=== PATIENT | female | born 1990 | race Two or more races ===

== ENCOUNTER 2020-11-22 17:25 | Emergency (ER) | payer OTHER, SELFPAY ==
[2020-11-22 17:57] VITALS: BP 143/91; PULSE 71; RESP 16; TEMP 36.6; O2SAT 100; BMI 19.8
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
[2020-11-22 18:28] LABS: Glucose Urine UA NEG (NEG); Leukocyte Esterase Urine NEG (NEG); Nitrite Urine NEG (NEG); Specific Gravity - Urine <= 1.005 (1.005-1.025); Urine Blood NEG (NEG); Urine Ketones NEG (NEG); Urine Protein NEG (NEG-TRACE)
[2020-11-22 18:29] LABS: Appearance Urine CLEAR; Color Urine STRAW
[2020-11-22 18:30] LABS: Urine Pregnancy NEGATIVE (NEGATIVE)
[2020-11-22 18:31] LABS: UPreg QC Valid YES
[2020-11-22] MEDS: Azithromycin 500 MG TABLET 1000 MG PO (19:49)
[2020-11-22] MEDS: cefTRIAXone sodium 250 MG VIAL IM (19:50)
--- NOTE | 2020-11-22 20:03 | PC.NURSE ---
LODOCAINE 1% 20ML NOT AVAILABLE. LIDOCAINE 1% 5ML USED.
[2020-11-24 17:32] LABS: C. trachomatis RNA TMA NOT DETECTED (NOT DETECTED); N. gonorrhoeae RNA TMA NOT DETECTED (NOT DETECTED)
== END 2020-11-22 20:02 | disposition home or self-care (01) ==
PROVIDERS: Emergency Provider Emergency Medicine
DX: Z20.2 Contact with and (suspected) exposure to infections with a predominantly sexual mode of transmission (principal)
CPT/HCPCS: 36415; 81003; 81025; 87491; 87591; 96372; 99283; 99284; J0696

== ENCOUNTER 2021-03-10 19:36 | Emergency (ER) | payer OTHER, SELFPAY ==
[2021-03-10 20:16] VITALS: BP 198/115; PULSE 69; RESP 22; TEMP 36.7; O2SAT 100; BMI 19.8
[2021-03-10] MEDS: Metoclopramide HCl 10 MG/2 ML VIAL IVPUSH (20:59)
[2021-03-10] MEDS: diphenhydrAMINE HCL 50 MG/ML VIAL 25 MG IVPUSH (20:59)
[2021-03-10] MEDS: LORazepam 2 MG/ML VIAL 1 MG IVPUSH (20:59)
[2021-03-10] MEDS: Ketorolac Tromethamine 30 MG/ML VIAL IVPUSH (20:59)
--- NOTE | 2021-03-10 21:01 | ED.HA ---
HPI - Headache General Chief Complaint: Headache Stated Complaint: flu like Time Seen by Provider: 03/10/21 20:20 Source: patient Mode of arrival: ambulatory Limitations: no limitations History of Present Illness HPI Narrative: 30 y/o female with history of migraine headaches, poorly controlled presents to the ER with worsening migraine since yesterday. She is nauseated and light sensitive. She is anxious and hyperventilating on arrival. Her hands are contracted. She reports her headache is severe and her whole body feels weird. She denies neck pain, fever, chills, or injury. She only takes OTC headache medication and often gets severe headaches. MD elicited complaint: migraine Pertinent past history: migraines Onset (ago): day(s) (1) Onset description: gradually Location: generalized Severity: severe Quality & Timing: aching and throbbing Exacerbating factors: light and noise Relieving factors: rest and ice packs Associated symptoms: nausea, diaphoresis and lightheadedness Treatments prior to arrival: none Related Data Previous Rx's Medication Instructions Recorded ttagwsxfrc-rfwtkwclryofv-jepf 1 cap PO Q6H PRN #10 cap 03/10/21 [Fioricet] Allergies Allergy/AdvReac Type Severity Reaction Status Date / Time nitrofurantoin Allergy Unknown RASH Verified 11/22/20 19:26 [From MACROBID] amoxicillin Allergy Unknown Verified 03/10/21 20:18 Review of Systems Review of Systems: Constitutional: No Fever, No Chills Eyes: +Eye Pain, No Swelling, No Redness Cardiovascular: No Chest Pain, No SOB, No Orthopnea, No Edema Respiratory: No Cough, No Sputum, No Wheezing, No dyspnea Gastrointestinal: + Nausea, No Vomiting, No Diarrhea, No abdominal Pain Genitourinary: No Dysuria, No Urinary Frequency, No Hematuria Musculoskeletal: No joint pain, No Myalgias Skin: No Skin Lesions, No rash Neuro: No Weakness, No Numbness, No Dizziness, + Headache Psych: + Anxiety/Panic, No Depression Heme/Lymph: No Bruising, No Lymphadenopathy PMFSH Past Medical History Attestation statement: The following information was validated with the patient. Medical History No known health problems Surgical History Previous section Social History Social History Advance Directives: No Advance Directives Information Provided: No Physical Exam Vital Signs: Vital Signs: Last Vital Signs Temp 98.0 F 03/10/21 20:16 Pulse 69 03/10/21 20:16 Resp 22 H 03/10/21 20:16 BP 198/115 H 03/10/21 20:16 Pulse Ox 100 03/10/21 20:16 Body Mass Index 19.8 Appearance: Alert. Oriented X3. Sitting on the stretcher wearing sunglasses. Tremulous Eyes: Pupils equal, round and reactive to light. ENT: Pharynx normal. Neck: Normal inspection. Neck supple. CVS: Normal heart rate and rhythm. Pulses normal. Respiratory: No respiratory distress. Breath sounds normal. Abdomen: Soft and nontender. +BS x4 Skin: Skin warm and dry. Normal skin color. Normal skin turgor. No rashes. Extremities: No lower extremity edema. Neuro: Oriented X 3. No motor deficit. No sensory deficit. Speaks in complete sentences. Non-focal. Course Course Course Narrative: 30 y/o female with history of migraines presenting with anxiety attack and migraine x1 day. Will treat with IV ativan, IV toradol, IV reglan and IV benadryl. Will reassess. Signed out to Angela Callaway PA-C who will reassess prior to discharge. Discharge Plan Discharge Clinical Impression: Migraine Qualifiers: Migraine type: unspecified Status migrainosus presence: without status migrainosus Intractability: not intractable Qualified Code(s): G43.909 - Migraine, unspecified, not intractable, without status migrainosus Patient Disposition: Home, Self-Care Instructions: Migraine Headache (ED) Additional Instructions: Rest and stay hydrated. Avoid screen time Take the prescribed medication as needed for headaches Recommend following up with a Neurologist/Headache Specialist. If you have worsening pain come back to the ER for further evaluation. Prescriptions: New tmgftubuau-srbjndeupgotu-jopw [Fioricet] 50-300-40 mg capsule 1 cap PO Q6H PRN (Reason: pain) Qty: 10 RF: 0
[2021-03-10] MEDS: 0.9 % Sodium Chloride 1,000 ML 999 ML IVCONT (21:13)
--- NOTE | 2021-03-10 21:21 | PC.NURSE ---
IVF hung per MAR. Pt refusing COV/SARS swab, agreeable to Covid NOW swab. MD aware. Covid swab obtained and sent.
[2021-03-10 21:42] LABS: COVID-19 Test Negative (Negative); IDNOW Serial# 9DD0AD1C
== END 2021-03-11 00:23 | disposition home or self-care (01) ==
PROVIDERS: Emergency Provider Emergency Medicine
DX: G43.909 Migraine, unspecified, not intractable, without status migrainosus (principal); F41.1 Generalized anxiety disorder; F43.0 Acute stress reaction; Z79.899 Other long term (current) drug therapy; Z20.822 Contact with and (suspected) exposure to COVID-19
CPT/HCPCS: 36415; 87635; 96365; 96375; 99284; J1200; J1885; J2060; J2765

== ENCOUNTER 2021-04-24 15:42 | Emergency (ER) | payer OTHER, SELFPAY ==
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
[2021-04-24 16:11] VITALS: BP 141/78; PULSE 79; RESP 18; TEMP 36.3; O2SAT 100; BMI 18.1
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
[2021-04-24] MEDS: Ibuprofen 400 MG TABLET PO (17:28)
[2021-04-24] MEDS: Acetaminophen 325 MG TABLET 650 MG PO (17:29)
== END 2021-04-24 19:33 | disposition home or self-care (01) ==
PROVIDERS: Emergency Provider Emergency Medicine
DX: S06.0X1A Concussion with loss of consciousness of 30 minutes or less, initial encounter (principal); S20.213A Contusion of bilateral front wall of thorax, initial encounter; S00.81XA Abrasion of other part of head, initial encounter; Y04.2XXA Assault by strike against or bumped into by another person, initial encounter; Y93.9 Activity, unspecified; Y92.9 Unspecified place or not applicable; Y99.9 Unspecified external cause status
CPT/HCPCS: 70450; 70486; 71111; 72125; 99283; 99284

== ENCOUNTER 2021-10-31 09:37 | Outpatient (REF) | payer OTHER, SELFPAY ==
[2021-10-31 10:32] LABS: Binax Internal Control QC Valid; Binax Now Covid-19 Ag Positive (Negative)
== END 2021-10-31 09:38 | disposition home or self-care (01) ==
LOC: HO.LAB 09:37
PROVIDERS: Visit Provider Internal Medicine
DX: Z20.822 Contact with and (suspected) exposure to COVID-19 (principal)
CPT/HCPCS: C9803

== ENCOUNTER 2021-11-06 10:43 | Outpatient (REF) | payer OTHER, SELFPAY ==
[2021-11-06 11:56] LABS: COVID-19 Test Negative (Negative)
== END 2021-11-06 10:44 | disposition home or self-care (01) ==
LOC: HO.LAB 10:43
PROVIDERS: Visit Provider Internal Medicine
DX: Z20.822 Contact with and (suspected) exposure to COVID-19 (principal)
CPT/HCPCS: 87635; C9803